=== PATIENT | female | born 1990 | race Caucasian/White ===

== ENCOUNTER 2020-07-30 21:04 | Emergency (ER) | payer MEDICAID ==
[2020-07-30 21:17] VITALS: BP 117/66
[2020-07-30] MEDS ORDERED: LIDOCAINE 1% INJ-PF (10 MG/ML) 30 ML SDV INJ ONE (21:24)
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
== END 2020-07-31 01:34 | disposition home or self-care (01) ==
LOC: ER 21:04
DX: S01.81XA Laceration without foreign body of other part of head, initial encounter (principal); W20.8XXA Other cause of strike by thrown, projected or falling object, initial encounter
CPT/HCPCS: 99281